=== PATIENT | female | born 1960 | race Caucasian/White ===

== ENCOUNTER 2021-03-25 09:28 | Emergency (ER) | payer OTHER, SELFPAY ==
[2021-03-25 09:28] VITALS: BP 141/100; PULSE 108; RESP 17; TEMP 36.6; O2SAT 100; BMI 23.8
--- NOTE | 2021-03-25 09:59 | EDS_ITS ---
HPI HPI - GI History of Present Illness Chief Complaint: Abd Pain Informant: patient and spouse/S.O. Abdominal Pain/Flank Pain Onset: Days (3-4) Context: Gradual Onset Timing: Continuous and Waxes and wanes Quality: Aching Location: - (Across periumbilical region worse on the right and into the flank/back) Current Severity: Moderate Maximum Severity: Moderate Worsened by: Nothing Relieved by: Nothing (Tried hydrocodone) Nausea/Vomiting/Emesis GI Symptom: Negative for Nausea and Vomiting Diarrhea/Melena/Hematochezia GI Symptom: Positive for - (Not having bowel movements in several weeks except for small one after enema) Associated Symptoms Associated Symptoms: Negative for Dysuria, Frequency, Hematuria and Urgency Narrative Narrative: Patient presented with abdominal discomfort, saying this episode has been there for several days but with further discussion she has been having these issues for several weeks. They state that she started having headaches with retro-orbital discomfort and fevers that were subjective. She saw someone and was placed on antibiotics and states everything went away. She then proceeded to have aches and pains all over her body involving arms, legs, back mostly. She has developed abdominal discomfort and felt that she might be constipated, did an enema, had a small bowel movement and then went to the [place] emergency room where she was diagnosed with hyponatremia at 116 and hypokalemia at 2.2 and was admitted to the hospital after a CT scan of her abdomen/pelvis that showed liquid stool in the colon and no other acute abno rmalities. Now she is getting worse, mostly abdominal discomfort and malaise without fevers, headache, vomiting, or diarrhea, she has not had a bowel movement since the enema she did before hospitalization, and they present here with some records from [facility] saying maybe you guys can figure this out since they could not. [facility] Medical History (Updated 03/25/21 @ 13:[address] Zaki Joseph MD) Hypothyroidism Hypothyroidism no medical history Home Medications Nature Thyroid 03/25/21 [History Last Taken Unknown] dicyclomine 20 mg PO Q6H PRN #16 capsule 03/25/21 [Rx Last Taken Unknown] hydrocodone-acetaminophen 1 tab PO Q4H PRN 03/25/21 [History Last Taken Unknown] sulfamethoxazole-trimethoprim 1 tab PO BID #6 tablet 03/25/21 [Rx Last Taken Unknown] Allergy/AdvReac Type Severity Reaction Status Date / Time azithromycin AdvReac Nausea/Vom/ Verified 03/25/21 09:31 Diarrhea Social History (Updated 03/25/21 @ 10:[address] Zaki Joseph MD) other: [facility] Smoking Status: Never smoker ROS ROS ED Constitutional Constitutional ED: Reports body ache(s) and malaise; Denies chills or fever(s) Eyes Eyes: Denies change in vision or diplopia ENT ENT ED: Denies rhinorrhea or sore throat Cardiovascular Cardiovascular: Denies chest pain or palpitations Respiratory/Chest Respiratory/Chest: Denies cough or dyspnea Gastrointestinal Gastrointestinal: Reports as per HPI, abdominal pain and constipation; Denies diarrhea, melena, nausea or vomiting Genitourinary Genitourinary ED: Denies dysuria or hematuria Musculoskeletal Musculoskeletal: Reports back pain; Denies neck pain Integumentary Denies abscess or rash Neurologic Neurologic: Denies headache(s), paresthesias or weakness Psychiatric Psychiatric: Denies anxiety or suicidal thoughts EXAM Physical Exam Const Vital Signs: 03/25/21 09:28 03/25/21 12:10 Temperature 97.9 F Temperature Source Temporal Pulse Rate 108 H 96 Respiratory Rate 17 16 Blood Pressure 141/100 H 152/100 H Blood Pressure Mean 113 117 Pulse Ox 100 Oxygen Delivery Method Room Air Positive well nourished and well developed General Appearance ED: well developed and NAD HEENT Reports moist mucous membranes normocephalic and atraumatic Eyes PERRL and EOMs intact bilaterally Neck full ROM and supple Resp normal respiratory effort and clear to auscultation bilaterally Cardio regular rate, regular rhythm and no murmurs GI GI Narrative: Soft distended abdomen. There are several areas of point tenderness, just right/inferior of the umbilicus, and left lateral mid abdomen. There is some mild involuntary guarding at these areas. She is mildly tender across the upper abdomen, and the rest of the abdomen is benign. Auscultation: normoactive bowel sounds Palpation: soft; Negative for rebound tenderness present Back/Spine no CVA tenderness, thoracic and lumbar spine normal to inspection, no thoracic nor lumbar tenderness and thoraco-lumbar ROM normal General Back: other FROM Extremity normal to inspection General Extremety ED: Negative for edema, pulses abnormal or tenderness General Extremity: Negative for edema or pulses abnormal Neuro oriented x3, CN's II-XII intact bilaterally and no sensory deficits noted Sensorium / Orientation: awake and alert Motor Exam: strength 5/5 throughout Skin no rashes or lesions noted and no wounds MDM MDM MDM Narrative Medical decision making narrative: I reviewed the records from the outside emergency department/inpatient records, it shows that 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 The spouse is asking how this is involved and what the significance of that is; it is not clear if this is related and if so, how. Patient had a headache and fever 3 or 4 weeks ago, but has not had either symptoms since then she is not confused, and she is not examining like meningitis nor encephalopathy and for these reasons I do not think she needs CSF emergently sampled. I repeated some of the work-up, especially since she had electrolyte disturbances that were quite severe, and performed a repeat CT abdomen pelvis with IV contrast. The results were limited however due to a significant amount of barium in the right hemicolon which may be causing her symptoms. When asked about this, she had a swallow study done while she was in [place] that I did not know about before this, and she drank barium for it. This was about five or 6 days ago. Without any significant leukocytosis I do not think she needs any other acute emergent studies right now. I think it would be reasonable to do a treatment of magnesium citrate followed by plenty of water in order to try to flush this through and produce a good bowel movement. My suspicion is that her pain and distention will improve or resolve after that, and then she can follow-up for reevaluation. I do not think she needs to be admitted to the hospital right now with a sodium of 126 and a potassium of 3.1 that are basically asymptomatic. Her urine shows some signs of infection although she has no urinary symptoms so I will treat her with a 3-day course of antibiotics for that and culture it, and prescribe her some dicyclomine, which they are requesting for the intermittent pains. For this reason, I will not be prescribing her potassium at this time. Lab Data Attestation: I reviewed the patient's lab results. Labs: Laboratory Results - last 24 hr 03/25/21 03/25/21 03/25/21 10:20 10:20 10:22 WBC 7.5 RBC 4.48 Hgb 13.2 Hct 40.1 MCV 89.5 MCH 29.5 MCHC 32.9 RDW Std Deviation 45.8 H RDW Coeff of Viktoriya 13.9 Plt Count 368 MPV 9.8 Immature Gran % (Auto) 0.300 Neut % (Auto) 68.7 Lymph % (Auto) 21.4 [place] % (Auto) 8.3 Eos % (Auto) 0.9 Baso % (Auto) 0.4 Absolute Neuts (auto) 5.2 Absolute Lymphs (auto) 1.60 Nucleated RBC % 0 Sodium 126 L Potassium 3.1 L Chloride 87 L Carbon Dioxide 31.0 Anion Gap 8 BUN 12 Creatinine 0.75 Estim Creat Clear Calc 63.88 Est GFR (MDRD) Af Amer 102 Est GFR (MDRD) Non-Af 84 BUN/Creatinine Ratio 16.0 Glucose 102 Calcium 9.7 Total Bilirubin 0.60 AST 15 ALT 26 Alkaline Phosphatase 87 Troponin I High Sens 5.6 Total Protein 7.7 Albumin 3.8 Globulin 3.9 Albumin/Globulin Ratio 1.0 Lipase 350 Urine Color Yellow Urine Clarity Sl. Cloudy Urine pH 5.0 Ur Specific [place] 1.020 Urine Protein 15 H Urine Glucose (UA) Normal Urine Ketones 5 H Urine Occult Blood 50 H Urine Nitrite Positive H Urine Bilirubin Negative Urine Urobilinogen Normal Ur Leukocyte Esterase 100 H Urine RBC 0-5 SEEN Urine WBC 10-25 SEEN Ur Squamous Epith Cells 0-5 SEEN Urine Bacteria 2+ Urine Mucus 0 SEEN Radiography Diagnostic Testing: Radiology Impression Abdomen/Pelvis CT 03/25/21 11:35 IMPRESSION: Fatty infiltration of the liver. Limited evaluation of the abdomen and pelvis due to large amount of residual contrast in the right hemicolon causing beam hardening artifacts. Electronically Signed: Travis Ramon MD at 11:54 EDT , Service support , Discharge Plan Triage Chief Complaint: Abd Pain ED Provider: Zaki Joseph Dx/Rx/DC Orders Clinical Impression: Right sided abdominal pain, Constipation, Urinary tract infection Instructions: ED Constipation (Adult), ED CYSTITIS Female Adult Prescriptions: New dicyclomine 10 MG capsule 20 mg PO Q6H PRN (Reason: abdominal pain) Qty: 16 RF: 0 sulfamethoxazole-trimethoprim [sulfamethoxazole-trimethoprim] 1 TABLET tablet 1 tab PO BID Qty: 6 RF: 0 No Action hydrocodone-acetaminophen 5-325 mg Tablet 1 tab PO Q4H PRN (Reason: pain) RF: 0 Nature Thyroid RF: 0 Primary Care Provider: Care Physician,No Primary Referrals: Care Physician,No Primary [Primary Care Provider] - Doctor,Your [STAFF PHYSICIAN] - 3-5 Days if not improving (After magnesium citrate hopefully produces a bowel movement) Activity Restrictions/Additional Instructions: Drink half bottle of magnesium citrate (150 mL) followed by plenty of fluids/water. If it does not produce a good bowel movement in 24 hours you may repeat with the other half of the bottle. Disposition Disposition: Home, Self Care
[2021-03-25] MEDS: 0.9% Normal Saline 1,000 ML 125 ML IV (10:23)
[2021-03-25 10:35] LABS: Mucous, Urine 0 SEEN /hpf (<or=2+)
[2021-03-25 10:38] LABS: Absolute Neutrophil Count 5.2 X10^3/uL (2.0-7.7); Basophil# 0.03 X10^3/uL; Basophil% 0.4 % (0-1); Eosinophil# 0.07 X10^3/uL; Eosinophils% 0.9 % (0-5); Hematocrit 40.1 % (37-47); Hemoglobin 13.2 g/dL (12.0-15.0); Lymphocyte % 21.4 % (19-41); Mean Corp Hgb Conc 32.9 g/dL (32-36); Mean Corpuscular Hgb 29.5 pg (27.0-32.0); Mean Corpuscular Volume 89.5 fL (81-99); Mean Platelet Vol. 9.8 fl (6.2-12.0); Monocyte# 0.62 X10^3/uL; Monocyte% 8.3 % (0-10); NRBC Flagged by Analyzer 0 % (0-5); Neutrophil # 5.15 X10^3/uL (2.7-7.7); Neutrophil % 68.7 % (47-70); Platelet Count 368 K/mm3 (150-450); RBC Distribution Width CV 13.9 % (11.6-14.6); RBC Distribution Width SD 45.8 fl (35.1-43.9); Red Blood Count 4.48 M/mm3 (4.2-5.4); White Blood Count 7.5 K/mm3 (4.4-11.0)
[2021-03-25 10:40] LABS: Color, Urine Yellow (Yellow); Glucose, Dipstick Normal (Normal); Ketone-Dipstick 5 mg/dl (Negative); Leukocyte Esterase-Dipstick 100 /ul (Negative); Nitrite-Dipstick Positive (Negative); Occult Blood-Urine 50 /ul (Negative); Protein-Dipstick 15 mg/dl (Negative); Urine Bilirubin Dipstick Negative (Negative); Urine Clarity Sl. Cloudy (Clear); Urine Urobilinogen Normal (Normal)
[2021-03-25 10:48] LABS: Bacteria 2+ /hpf (None Seen); Red Blood Cells-Urine 0-5 SEEN /hpf (0-5); Squamous Epithelial Cells - UA 0-5 SEEN /hpf (5-10); White Blood Cells 10-25 SEEN /hpf (0-5)
[2021-03-25 10:56] LABS: AST(SGOT) 15 U/L (15-37); Alanine Aminotransfer ALT/SGPT 26 U/L (13-56); Albumin, Serum 3.8 g/dL (3.2-5.0); Alkaline Phosphatase 87 U/L (45-117); Anion Gap 8 (5-15); BUN 12 mg/dL (7-18); Calcium,Total 9.7 mg/dL (8.5-10.1); Chloride 87 mmol/L (98-107); Creatinine, Serum 0.75 mg/dL (0.55-1.02); EST Glomerular Filtration Rate 84 mL/min (>60); Est Glom Filt Rate - Afr Amer 102 mL/min (>60); Estimated Creatinine Clearance 63.88 ml/min; Globulin 3.9 g/dL (2.2-4.2); Glucose 102 mg/dL (74-106); Lipase 350 U/L (73-393); Potassium 3.1 mmol/L (3.5-5.1); Protein, Total 7.7 g/dL (6.4-8.2); Sodium Level 126 mmol/L (136-145); Troponin-I HS 5.6 pg/mL (3.0-53.7)
--- NOTE | 2021-03-25 11:35 | CT_ITS ---
STUDY: CT ABDOMEN AND PELVIS WITH CONTRAST REASON FOR EXAM: Female, 60 years old. Diffuse abd pain, abdominal distension RADIATION DOSAGE (If Supplied By Facility): CTDIvol = ( 14.28 ) mGy, DLP = ( 811.73 ) mGycm TECHNIQUE: Transaxial images were obtained from the dome of the diaphragm to the symphysis pubis without oral contrast. IV 100mL Isovue-300 was administered. Sagittal and coronal images were reconstructed. Individualized dose optimization techniques were used for this CT. COMPARISON: None. FINDINGS: The visualized lung bases are unremarkable. The visualized portions of the heart are within normal limits. There is decreased attenuation of the liver consistent with steatosis. Normal gallbladder and extrahepatic biliary system. Normal spleen. Normal pancreas. Normal bilateral adrenal glands. Normal right kidney. Normal left kidney. Normal visualized stomach. Normal small intestine. Large amount of residual barium is seen within the right hemicolon limiting the examination of the abdomen and pelvis due to beam hardening artifacts. The appendix is visualized and appears normal. Normal abdominal aorta. Normal inferior vena cava. Normal retroperitoneum. Normal urinary bladder. Normal abdominal wall. Normal osseous structures. CT/Abdomen/Pelvis W IV Cont ONLY IMPRESSION: Fatty infiltration of the liver. Limited evaluation of the abdomen and pelvis due to large amount of residual contrast in the right hemicolon causing beam hardening artifacts. Electronically Signed: Travis Ramon MD at 11:54 EDT , Service support ,
[2021-03-25 12:10] VITALS: BP 152/100; PULSE 96; RESP 16
[2021-03-25 13:36] VITALS: BP 148/98; PULSE 107; RESP 16
== END 2021-03-25 13:36 | disposition home or self-care (01) ==
PROVIDERS: Emergency Provider Emergency Medicine
DX: R10.30 Lower abdominal pain, unspecified (principal); K59.00 Constipation, unspecified; N39.0 Urinary tract infection, site not specified; Z79.899 Other long term (current) drug therapy
CPT/HCPCS: 74177; 80053; 81001; 83690; 84484; 85025; 87086; 87088; 87186; 87426; 96360; 96361; 99283; J7030; Q9967; A4216

== ENCOUNTER 2021-04-01 07:15 | Inpatient (IN) | payer OTHER, SELFPAY ==
[2021-04-01 07:16] VITALS: BP 128/96; PULSE 105; RESP 18; TEMP 36.2; O2SAT 97; BMI 22.4
--- NOTE | 2021-04-01 07:37 | EKG12_ITS ---
Test Reason : ABDOMINAL PAIN Blood Pressure : / mmHG Vent. Rate : 090 BPM Atrial Rate : 090 BPM P-R Int : 184 ms QRS Dur : 082 ms QT Int : 364 ms P-R-T Axes : 064 -10 043 degrees QTc Int : 445 ms Normal sinus rhythm Low voltage QRS (Limb Leads) Confirmed by SKYLER CHAPIN, TRACY ([id number]), staff editor TASHA CABAN ([id number]) on 04/03/2021 10:01:14 AM Referred By: Confirmed By:TRACY HOLLAND MD
--- NOTE | 2021-04-01 07:37 | CT_ITS ---
STUDY: CT ABDOMEN AND PELVIS WITH CONTRAST REASON FOR EXAM: Female, 60 years old. RLQ pain -- IV PO Contrast RADIATION DOSAGE (If Supplied By Facility): CTDIvol = ( 15.38 ) mGy, DLP = ( 358.78 ) mGycm TECHNIQUE: Transaxial images were obtained from the dome of the diaphragm to the symphysis pubis with oral contrast. Oral and amp; IV Gastrografin and amp; 100mL Isovue-370 was administered. Sagittal and coronal images were reconstructed. Individualized dose optimization techniques were used for this CT. COMPARISON: Comparison is made with prior study 03/25/2021. FINDINGS: The visualized lung bases are unremarkable. The visualized portions of the heart are within normal limits. Normal liver. Normal gallbladder and extrahepatic biliary system. Normal spleen. Normal pancreas. Normal bilateral adrenal glands. Normal right kidney. Normal left kidney. Normal visualized stomach. Normal small intestine. Normal colon. The appendix is visualized and appears normal. Small lymph nodes are seen in the mesenteric fat in the right lower quadrant suggestive of mesenteric adenitis. Normal abdominal aorta. Normal inferior vena cava. Normal retroperitoneum. Distended urinary bladder. Normal abdominal wall. Levoscoliosis. CT/Abdomen/Pelvis WITH Contrast IMPRESSION: Findings suggestive of a mesenteric adenitis. Distended urinary bladder. Electronically Signed: Travis Ramon MD at 9:44 EDT , Service support ,
--- NOTE | 2021-04-01 07:38 | EX.ED.DYSGE1 ---
HPI History of Present Illness Chief Complaint: Abd Pain Narrative Narrative: 60-year-old female presenting with abdominal pain. Family states this started approximately 8 weeks ago. She has had right-sided abdominal pain. She was admitted to [facility] for similar symptoms. She was seen in the ED 1 week ago for similar complaints. Family states pain is now more localized in her right lower quadrant. She did have a bowel movement yesterday. She denies vomiting. Complains of generalized weakness and fatigue. She has had intermittent fevers. She tested negative for Covid 1 week ago. Prior similar symptoms: Yes Recent Illness/Hospitalization: Yes [facility] Medical History (Updated 04/01/21 @ 11:[address] Venita Mendoza MD) Hypothyroidism Hypothyroidism Home Medications Nature Thyroid 03/25/21 [History Last Taken Unknown] dicyclomine 20 mg PO Q6H PRN #16 capsule 03/25/21 [Rx Last Taken Unknown] hydrocodone-acetaminophen 1 tab PO Q4H PRN 03/25/21 [History Last Taken Unknown] sulfamethoxazole-trimethoprim 1 tab PO BID #6 tablet 03/25/21 [Rx Last Taken Unknown] Allergy/AdvReac Type Severity Reaction Status Date / Time azithromycin AdvReac Nausea/Vom/ Verified 04/01/21 07:16 Diarrhea Social History (Updated 03/25/21 @ 10:[address] Zaki Joseph MD) other: [facility] Smoking Status: Never smoker ROS ROS ED Constitutional Constitutional ED: Reports fever(s) Eyes Eyes: Denies change in vision ENT ENT ED: Denies rhinorrhea or sore throat Cardiovascular Cardiovascular: Denies chest pain or palpitations Respiratory/Chest Respiratory/Chest: Denies cough or dyspnea Gastrointestinal Gastrointestinal: Reports abdominal pain and nausea; Denies diarrhea or vomiting Genitourinary Genitourinary ED: Denies dysuria Musculoskeletal Musculoskeletal: Denies myalgias Integumentary Denies rash Neurologic Neurologic: Denies headache(s) Psychiatric Psychiatric: Denies suicidal thoughts EXAM Physical Exam Const Vital Signs: 04/01/21 07:16 04/01/21 11:18 Temperature 97.1 F L Temperature Source Temporal Pulse Rate 105 H 82 Respiratory Rate 18 16 Blood Pressure 128/96 H 135/86 H Blood Pressure Mean 106 102 Pulse Ox 97 97 Oxygen Delivery Method Room Air Room Air Positive well nourished and well developed General Appearance ED: well developed HEENT Reports normocephalic and head/scalp atraumatic Eyes PERRL and EOMs intact bilaterally Neck supple General: Negative for tenderness Chest Wall inspection of chest normal Resp normal respiratory effort and clear to auscultation bilaterally Cardio regular rate and regular rhythm GI non-distended Palpation: soft and tender RLQ and RUQ; Negative for guarding or rebound tenderness present no CVA tenderness Back/Spine General Back: CVA tenderness right Extremity normal to inspection Neuro oriented x3 Sensorium / Orientation: alert Psych mental status grossly normal Skin no rashes or lesions noted MDM MDM MDM Narrative Medical decision making narrative: Patient was given IV fluids, morphine, Zofran. Chemistries show sodium 124, potassium 2.8. Lipase 1253. EKG is sinus rhythm rate of 90 with no acute ischemic changes. She was given potassium oral replacement. Gallbladder ultrasound shows mild right hydronephrosis. CT abdomen pelvis shows findings suggestive of mesenteric adenitis. Due to patient's elevated lipase, continued pain, discussed with hospitalist for admission. Lab Data Attestation: I reviewed the patient's lab results. Labs: Laboratory Results - last 24 hr 04/01/21 04/01/21 04/01/21 08:00 08:00 09:52 WBC 7.4 RBC 4.80 Hgb 14.3 Hct 42.1 MCV 87.7 MCH 29.8 MCHC 34.0 RDW Std Deviation 42.5 RDW Coeff of Viktoriya 13.3 Plt Count 249 MPV 10.1 Immature Gran % (Auto) 0.300 Neut % (Auto) 64.5 Lymph % (Auto) 26.1 [place] % (Auto) 8.0 Eos % (Auto) 0.7 Baso % (Auto) 0.4 Absolute Neuts (auto) 4.8 Absolute Lymphs (auto) 1.93 Nucleated RBC % 0 Platelet Estimate ADEQUATE Plt Morphology Comment CLUMPED Sodium 124 L Potassium 2.8 L Chloride 91 L Carbon Dioxide 26.0 Anion Gap 7 BUN 12 Creatinine 0.70 Estim Creat Clear Calc 68.44 Est GFR (MDRD) Af Amer 110 Est GFR (MDRD) Non-Af 91 BUN/Creatinine Ratio 17.2 Glucose 102 Calcium 9.5 Total Bilirubin 0.60 AST 17 ALT 25 Alkaline Phosphatase 84 Total Protein 7.6 Albumin 3.2 Globulin 4.4 H Albumin/Globulin Ratio 0.7 L Lipase 1253 H Urine Color Straw Urine Clarity Clear Urine pH 7.0 Ur Specific [place] 1.005 Urine Protein Negative Urine Glucose (UA) Normal Urine Ketones 5 H Urine Occult Blood 10 H Urine Nitrite Negative Urine Bilirubin Negative Urine Urobilinogen Normal Ur Leukocyte Esterase Negative Urine RBC 0 SEEN Urine WBC 0 SEEN Ur Squamous Epith Cells 0-5 SEEN Urine Bacteria 0 SEEN Urine Mucus 0 SEEN Radiography Diagnostic Testing: Radiology Impression Abdomen/Pelvis CT 04/01/21 07:37 IMPRESSION: Findings suggestive of a mesenteric adenitis. Distended urinary bladder. Electronically Signed: Travis Ramon MD at 9:44 EDT , Service support , Gallbladder Ultrasound 04/01/21 08:40 IMPRESSION: Mild degree of right hydronephrosis. Electronically Signed: Travis Ramon MD at 10:46 EDT , Service support , EKG Initial EKG: Attestation: I personally reviewed and interpreted this EKG as follows: Interpretation: Sinus Rhythm and No Acute Injury Pattern Discharge Plan Triage Chief Complaint: Abd Pain ED Provider: Venita Mendoza Dx/Rx/DC Orders Clinical Impression: Acute pancreatitis, Acute hyponatremia, Acute hypokalemia Prescriptions: No Action hydrocodone-acetaminophen 5-325 mg Tablet 1 tab PO Q4H PRN (Reason: pain) RF: 0 Nature Thyroid RF: 0 dicyclomine 10 MG capsule 20 mg PO Q6H PRN (Reason: abdominal pain) Qty: 16 RF: 0 sulfamethoxazole-trimethoprim [sulfamethoxazole-trimethoprim] 1 TABLET tablet 1 tab PO BID Qty: 6 RF: 0 Primary Care Provider: Care Physician,No Primary Referrals: Care Physician,No Primary [Primary Care Provider] - Disposition Disposition: [facility]
--- NOTE | 2021-04-01 07:46 | NURSING ---
NO OLD EKGS
[2021-04-01 08:08] LABS: Absolute Lymphocyte Count 1.93 X10^3/uL (0.83-4.51); Absolute Neutrophil Count 4.8 X10^3/uL (2.0-7.7); Basophil# 0.03 X10^3/uL; Basophil% 0.4 % (0-1); Eosinophil# 0.05 X10^3/uL; Eosinophils% 0.7 % (0-5); Hematocrit 42.1 % (37-47); Hemoglobin 14.3 g/dL (12.0-15.0); Lymphocyte # 1.93 X10^3/ul (0.83-4.51); Lymphocyte % 26.1 % (19-41); Mean Corpuscular Hgb 29.8 pg (27.0-32.0); Mean Corpuscular Volume 87.7 fL (81-99); Mean Platelet Vol. 10.1 fl (6.2-12.0); Monocyte# 0.59 X10^3/uL; NRBC Flagged by Analyzer 0 % (0-5); Neutrophil # 4.78 X10^3/uL (2.7-7.7); Neutrophil % 64.5 % (47-70); POSITIVE COUNT YES; Platelet Count 249 K/mm3 (150-450); RBC Distribution Width CV 13.3 % (11.6-14.6); RBC Distribution Width SD 42.5 fl (35.1-43.9); White Blood Count 7.4 K/mm3 (4.4-11.0)
[2021-04-01 08:11] LABS: Differential Indicated SCAN CRITERIA MET
[2021-04-01 08:22] LABS: ALB/GLOB Ratio 0.7 RATIO (0.9-2.4); AST(SGOT) 17 U/L (15-37); Alanine Aminotransfer ALT/SGPT 25 U/L (13-56); Albumin, Serum 3.2 g/dL (3.2-5.0); Alkaline Phosphatase 84 U/L (45-117); Anion Gap 7 (5-15); BUN 12 mg/dL (7-18); BUN/Creat Ratio 17.2 RATIO (10-20); Calcium,Total 9.5 mg/dL (8.5-10.1); Chloride 91 mmol/L (98-107); EST Glomerular Filtration Rate 91 mL/min (>60); Est Glom Filt Rate - Afr Amer 110 mL/min (>60); Estimated Creatinine Clearance 68.44 ml/min; Globulin 4.4 g/dL (2.2-4.2); Glucose 102 mg/dL (74-106); Lipase 1253 U/L (73-393); Potassium 2.8 mmol/L (3.5-5.1); Protein, Total 7.6 g/dL (6.4-8.2); Sodium Level 124 mmol/L (136-145)
[2021-04-01 08:32] LABS: Platelet Estimate ADEQUATE (ADEQ); Platelet Morphology CLUMPED
--- NOTE | 2021-04-01 08:40 | US_ITS ---
STUDY: ABDOMINAL ULTRASOUND - RIGHT UPPER QUADRANT REASON FOR VISIT: Female, 60 years old RUQ pain TECHNIQUE: Ultrasound evaluation of the right upper quadrant was performed with real-time and static schreiber-scale imaging. TECHNICAL QUALITY: Limited. Examination limited by bowel gas. COMPARISON: Comparison is made with prior CT scan the abdomen and pelvis done earlier in the day. FINDINGS: Liver: The liver measures 13.2 cm. There is normal echogenicity of the liver. The bile ducts are within normal limits. There is hepatic color flow. The direction of portal flow is hepatopetal. There is no demonstrated mass lesion. Gallbladder: Normal distended gallbladder. The gallbladder wall measures 1.4 mm. There is a negative sonographic Lawrence''s sign. There is no pericholecystic fluid. There are no gallstones. Common Bile Duct (C.B.D.): The common bile duct measures 7.9 mm. Pancreas: Normal size of the head, body and tail of the pancreas. There is normal echogenicity of the pancreas. There is no demonstrated pancreatic mass or cyst. Right Kidney: Normal size of the right kidney. The right kidney measures 10 cm x 4.4 cm x 4 cm. Normal renal cortex. The right cortex measures 1.3 cm. There is no demonstrated renal mass or cyst. There is mild hydronephrosis of the right kidney. US/Gallbladder IMPRESSION: Mild degree of right hydronephrosis. Electronically Signed: Travis Ramon MD at 10:46 EDT , Service support ,
[2021-04-01] MEDS: Morphine 4 MG/ML Syringe IV (08:43)
[2021-04-01] MEDS: Ondansetron 4 MG/2 ML Vial IV (08:43)
[2021-04-01] MEDS: 0.9% Normal Saline 1,000 ML 1000 ML IV (08:46)
[2021-04-01 09:58] LABS: Bacteria 0 SEEN /hpf (None Seen); Mucous, Urine 0 SEEN /hpf (<or=2+); Red Blood Cells-Urine 0 SEEN /hpf (0-5); White Blood Cells 0 SEEN /hpf (0-5)
[2021-04-01 10:02] LABS: Color, Urine Straw (Yellow); Glucose, Dipstick Normal (Normal); Ketone-Dipstick 5 mg/dl (Negative); Leukocyte Esterase-Dipstick Negative /ul (Negative); Nitrite-Dipstick Negative (Negative); Occult Blood-Urine 10 /ul (Negative); Protein-Dipstick Negative (Negative); Specific Gravity, Urine 1.005 (1.002-1.030); Urine Bilirubin Dipstick Negative (Negative); Urine Clarity Clear (Clear); Urine Urobilinogen Normal (Normal)
[2021-04-01 10:09] LABS: Squamous Epithelial Cells - UA 0-5 SEEN /hpf (5-10)
[2021-04-01 11:18] VITALS: BP 135/86; PULSE 82; RESP 16; O2SAT 97
--- NOTE | 2021-04-01 11:49 | NURSING ---
DR TIMOTHY BASS
--- NOTE | 2021-04-01 12:48 | NURSING ---
MED SURG JOPPERI PANCREATITIS, HYPONATREMIA
[2021-04-01] MEDS: Potassium Chloride Oral Soln 20 MEQ/15 ML UDC 40 MEQ PO (13:20)
[2021-04-01 13:24] VITALS: BP 129/78; PULSE 98; RESP 16; TEMP 37.1; O2SAT 99
[2021-04-01 13:52] VITALS: BP 127/84; PULSE 87; RESP 16; TEMP 36.3; O2SAT 97
[2021-04-01 13:53] VITALS: BMI 22.6
--- NOTE | 2021-04-01 15:18 | MRI_ITS ---
STUDY: MR MRCP WITHOUT CONTRAST REASON FOR EXAM: Female, 60 years old. pancreatitis,abd pain TECHNIQUE: Standard MRCP technique was utilized. 3-D reconstructions were performed. COMPARISON: CT and ultrasound earlier today FINDINGS: Gall Bladder: Normal with no distention or demonstrated fixed intraluminal filling defect. Cystic duct: Normal with no demonstrated fixed filling defect. Intrahepatic ducts: Normal visualized intrahepatic ducts with no demonstrated fixed filling defect, dilation or stricture. Common hepatic duct: Normal with no demonstrated fixed filling defect, dilation or stricture. Common bile duct: Normal with no demonstrated fixed filling defect, dilation or stricture. Pancreatic duct: Normal with no demonstrated fixed filling defect, dilation or stricture. MRI/MRCP Abdomen without Contrast IMPRESSION: Normal MR Cholangiopancreatography (MRCP). Electronically Signed: Marques Cuevas MD at 18:48 EDT Tel , Service support ,
--- NOTE | 2021-04-01 15:20 | PCM.HP.STD ---
HPI - General General Date of Admission: 04/01/21 Date of Service: 04/01/21 Chief Complaint: abdominal pain HPI Narrative STEF ROCK, is a 60 F who presents diffuse abdominal pain that has been progressive getting worse. Roughly 8 weeks ago, patient was treated with antibiotics and has been having abdominal pain ever since then. Is not eating much but eating seems to make it worse. No nausea, vomiting or diarrhea. Patient had a CAT scan that showed mesenteric adenitis and did have a lipase 1253. PFSH Medical History (Updated 04/01/21 @ 15:[address] Chris Smith DO) Hypokalemia Hyponatremia Hypothyroidism Hypothyroidism Home Medications dicyclomine 20 mg PO Q6H PRN #16 capsule 03/25/21 [Rx Last Taken 03/29/21] hydrocodone-acetaminophen 1 tab PO Q4H PRN 03/25/21 [History Last Taken 03/29/21] potassium chloride 20 meq PO DAILY 04/01/21 [History Last Taken 03/31/21] sodium chloride 1 g PO BID 04/01/21 [History Last Taken 03/31/21 18:00] thyroid (pork) [[place] Thyroid] 90 mg PO DAILY 04/01/21 [History Last Taken 04/01/21 06:00] Allergy/AdvReac Type Severity Reaction Status Date / Time azithromycin AdvReac neck spasms Verified 04/01/21 14:02 Social History other: [facility] Smoking Status: Never smoker ROS ROS Narrative All review of systems were negative except as mentioned above in the history of present illness and the other review of systems. Vital Signs Vital Signs Vital Signs: 04/01/21 07:16 04/01/21 11:18 04/01/21 13:24 Temperature 36.2 C L 37.1 C Temperature Source Temporal Temporal Pulse Rate 105 H 82 98 Respiratory Rate 18 16 16 Blood Pressure 128/96 H 135/86 H 129/78 H Blood Pressure Mean 106 102 95 Blood Pressure Source Blood Pressure Position Blood Pressure Location Pulse Ox 97 97 99 Oxygen Delivery Method Room Air Room Air Room Air 04/01/21 13:52 Temperature 36.3 C L Temperature Source Temporal Pulse Rate 87 Respiratory Rate 16 Blood Pressure 127/84 H Blood Pressure Mean 98 Blood Pressure Source Monitor Blood Pressure Position Semi-Fowlers Blood Pressure Location Left Arm Pulse Ox 97 Oxygen Delivery Method Room Air Weight Weight: 56.1 kg Body Mass Index (BMI) 22.6 Physical Exam Const alert and no apparent distress Constitutional Narrative: Hard of hearing General Appearance: cooperative HEENT normocephalic Eyes PERRL Neck no lymphadenopathy Resp normal respiratory effort, no retractions, no use of accessory muscles and clear to auscultation bilaterally Cardio regular rate, regular rhythm, S1 normal heart sound and S2 normal heart sound GI normal to inspection, nondistended, normoactive bowel sounds, soft to palpation and non-distended GI Narrative: Mild tenderness throughout. No guarding Extremity normal to inspection Skin no rashes or lesions noted Neuro Sensorium / Orientation: awake and alert Psych affect normal Results Lab / Micro Data Attestation: I reviewed the patient's lab results. Result Diagrams: 04/01/21 08:00 04/01/21 08:00 Labs: Laboratory Results - last 24 hr 04/01/21 08:00: WBC 7.4, RBC 4.80, Hgb 14.3, Hct 42.1, MCV 87.7, MCH 29.8, MCHC 34.0, RDW Std Deviation 42.5, RDW Coeff of Viktoriya 13.3, Plt Count 249, MPV 10.1, Immature Gran % (Auto) 0.300, Neut % (Auto) 64.5, Lymph % (Auto) 26.1, [place] % (Auto) 8.0, Eos % (Auto) 0.7, Baso % (Auto) 0.4, Absolute Neuts (auto) 4.8, Absolute Lymphs (auto) 1.93, Nucleated RBC % 0, Platelet Estimate ADEQUATE, Plt Morphology Comment CLUMPED 04/01/21 08:00: Sodium 124 L, Potassium 2.8 L, Chloride 91 L, Carbon Dioxide 26.0, Anion Gap 7, BUN 12, Creatinine 0.70, Estim Creat Clear Calc 68.44, Est GFR (MDRD) Af Amer 110, Est GFR (MDRD) Non-Af 91, BUN/Creatinine Ratio 17.2, Glucose 102, Calcium 9.5, Total Bilirubin 0.60, AST 17, ALT 25, Alkaline Phosphatase 84, Total Protein 7.6, Albumin 3.2, Globulin 4.4 H, Albumin/Globulin Ratio 0.7 L, Lipase 1253 H 04/01/21 09:52: Urine Color Straw, Urine Clarity Clear, Urine pH 7.0, Ur Specific [place] 1.005, Urine Protein Negative, Urine Glucose (UA) Normal, Urine Ketones 5 H, Urine Occult Blood 10 H, Urine Nitrite Negative, Urine Bilirubin Negative, Urine Urobilinogen Normal, Ur Leukocyte Esterase Negative, Urine RBC 0 SEEN, Urine WBC 0 SEEN, Ur Squamous Epith Cells 0-5 SEEN, Urine Bacteria 0 SEEN, Urine Mucus 0 SEEN Micro: Microbiology 04/01/21 10:48 Mucosa - Nose SARS-CoV-2 Antigen (Rapid) - Final Radiology Impression Abdomen/Pelvis CT 04/01/21 07:37 IMPRESSION: Findings suggestive of a mesenteric adenitis. Distended urinary bladder. Electronically Signed: Travis Ramon MD at 9:44 EDT , Service support , Gallbladder Ultrasound 04/01/21 08:40 IMPRESSION: Mild degree of right hydronephrosis. Electronically Signed: Travis Ramon MD at 10:46 EDT , Service support , Assessment & Plan Assessment/Plan (1) Pancreatitis: QUALIFIERS: Chronicity: acute Pancreatitis type: unspecified pancreatitis type Acute pancreatitis complication: no infection or necrosis Qualified Code(s): K85.90 - Acute pancreatitis without necrosis or infection, unspecified (2) Mesenteric adenitis: (3) Hypokalemia: (4) Hyponatremia: PLAN: 1. Acute pancreatitis Lipase slightly elevated at 1253 Unclear etiology but patient denies alcohol use and ultrasound was negative for any choledocholithiasis. IV fluids, clear liquid diet and recheck lipase 2. Mesenteric adenitis Unclear etiology and significance We will check a lactic acid though doubt mesenteric ischemia would be an etiology Could be infectious which could also explain the pancreatitis Will likely require further follow-up as outpatient and/or colonoscopy 3. Hyponatremia Chronic Unclear etiology Evaluate for SIADH with urine sodium, urine osmolality and serum osmolality Additionally check TSH and as well as random cortisol 4. Hypokalemia Chronic Check magnesium Continue with replacement 5. Hypothyroidism On [place] Thyroid in which she has been on for years Check TSH 6. VTE prophylaxis: Low molecular rate heparin 7. History of COVID-19: Patient has COVID-19 earlier this year. Rapid antigen here was negative. No clinical suspicion for acute COVID-19 at this time. Charges/Coding Visit Charges Inpatient E&M: 57756 Init Hosp L3
[2021-04-01] MEDS: oxyCODONE 5 MG Tablet PO ×2 (15:34→23:56)
[2021-04-01] MEDS: Contrast Allergy Safety Check IV (15:37)
[2021-04-01 16:09] LABS: Urine Sodium 96 mmol/L (Not Establ.)
[2021-04-01] MEDS: 0.9% Saline Lock 10 ML Syringe IV (16:18)
[2021-04-01] MEDS: KCL 20MEQ in 0.9% NS 20 MEQ/1,000 ML IV.SOLN. 150 MEQ IV ×2 (16:18→23:55)
[2021-04-01 16:46] LABS: Osmolality, Urine 467 mOsm/KG
[2021-04-01 17:36] LABS: Osmolality, Serum 279 mOsm/KG (275-295)
[2021-04-01 17:48] LABS: Lactic Acid 0.8 mmol/L (0.4-1.9)
[2021-04-01 18:58] VITALS: BP 131/89; PULSE 93; RESP 16; TEMP 36.9; O2SAT 98
--- NOTE | 2021-04-01 19:59 | NURSING ---
Pandemic documentation Date: 04/01/21 Time:1899
[2021-04-01] MEDS: Sodium Chloride 1 GM Tablet PO (21:06)
[2021-04-01 21:12] VITALS: BP 127/82; PULSE 100; RESP 18; TEMP 37.3; O2SAT 99
[2021-04-02 03:06] VITALS: BP 122/85; PULSE 97; RESP 16; TEMP 36.3; O2SAT 97
[2021-04-02] MEDS: oxyCODONE 5 MG Tablet 10 MG PO (04:14)
[2021-04-02] MEDS: KCL 20MEQ in 0.9% NS 20 MEQ/1,000 ML IV.SOLN. 150 MEQ IV ×2 (06:14→12:48)
[2021-04-02 06:55] LABS: Anion Gap 6 (5-15); BUN 7 mg/dL (7-18); BUN/Creat Ratio 13.6 RATIO (10-20); Calcium,Total 8.3 mg/dL (8.5-10.1); Chloride 100 mmol/L (98-107); Creatinine, Serum 0.52 mg/dL (0.55-1.02); EST Glomerular Filtration Rate 129 mL/min (>60); Est Glom Filt Rate - Afr Amer 157 mL/min (>60); Estimated Creatinine Clearance 92.13 ml/min; Glucose 102 mg/dL (74-106); Lipase 688 U/L (73-393); Potassium 3.3 mmol/L (3.5-5.1); Sodium Level 133 mmol/L (136-145); Thyroid Stim Hormone (TSH) 2.43 uIU/mL (0.358-3.74)
[2021-04-02 08:21] VITALS: BP 115/75; PULSE 94; RESP 16; TEMP 36.9; O2SAT 97
[2021-04-02] MEDS: Potassium Chloride Oral Tablet 20 MEQ PO (08:26)
[2021-04-02 08:35] VITALS: PULSE 88
--- NOTE | 2021-04-02 09:28 | PN.HOSP_ITS ---
Subjective Subjective Still with abdominal pain but overall better. Has eaten something Objective Data Objective Data Vital Signs: Vital Signs Temp Pulse Resp BP Pulse Ox 36.9 C 94 16 115/75 97 04/02/21 08:21 04/02/21 08:21 04/02/21 08:21 04/02/21 08:21 04/02/21 08:21 Oxygen Delivery Method Room Air Weight: 56.1 kg Body Mass Index (BMI) 22.6 Intake & Output: Intake and Output for Last 24 Hours 03/31/21 04/01/21 04/02/21 23:59 23:59 23:59 Intake Total 2149 / 2149 947.5 / 947.5 Balance 2149 947.5 / 947.5 Medical Nutrition Assessment Dietitian: Malnutrition Criteria Met Start: 04/01/21 15:47 Freq: Status: Active Protocol: Document 04/01/21 15:47 SLA (Rec: 04/01/21 15:47 SLA [id number]) Nutrition Malnutrition Evidence of Malnutrition Exists Yes Malnutrition (severe): Acute Illness/Injury Evidenced By Suboptimal Energy Intake ( Severe),Weight Loss (Severe) Clinical Problem Acute Disease or Injury Related Malnutrition Etiology related to altered GI function and inadequate nutrition to meet estimated nutritional needs Signs/Symptoms as evidenced by 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 Problem Recommendation Dietitian Recommendations/Changes When medically able, rec diet as tolerated to Transitional w / goal of Regular diet Will provide 8 oz ensure clear w/ meals for increased nutrition if consumed Lab / Micro Data Result Diagrams: 04/01/21 08:00 04/02/21 05:50 Labs: Laboratory Results - last 24 hr 04/01/21 09:52: Urine Color Straw, Urine Clarity Clear, Urine pH 7.0, Ur Specific [place] 1.005, Urine Protein Negative, Urine Glucose (UA) Normal, Urine Ketones 5 H, Urine Occult Blood 10 H, Urine Nitrite Negative, Urine Bilirubin Negative, Urine Urobilinogen Normal, Ur Leukocyte Esterase Negative, Urine RBC 0 SEEN, Urine WBC 0 SEEN, Ur Squamous Epith Cells 0-5 SEEN, Urine Bacteria 0 SEEN, Urine Mucus 0 SEEN 04/01/21 15:55: Urine Osmolality 467, Ur Random Sodium 96 04/01/21 17:05: Serum Osmolality 279 04/01/21 17:05: Lactic Acid 0.8 04/02/21 05:50: Sodium 133 L, Potassium 3.3 L, Chloride 100, Carbon Dioxide 27.0, Anion Gap 6, BUN 7, Creatinine 0.52 L, Estim Creat Clear Calc 92.13, Est GFR (MDRD) Af Amer 157, Est GFR (MDRD) Non-Af 129, BUN/Creatinine Ratio 13.6, Glucose 102, Calcium 8.3 L, Magnesium 2.0, Lipase 688 H, TSH 2.43 04/02/21 05:50: Cortisol 13.70 Micro: Microbiology 04/01/21 10:48 Mucosa - Nose SARS-CoV-2 Antigen (Rapid) - Final Radiography Diagnostic Testing: Radiology Impression Abdomen/Pelvis CT 04/01/21 07:37 IMPRESSION: Findings suggestive of a mesenteric adenitis. Distended urinary bladder. Electronically Signed: Travis Ramon MD at 9:44 EDT , Service support , Gallbladder Ultrasound 04/01/21 08:40 IMPRESSION: Mild degree of right hydronephrosis. Electronically Signed: Travis Ramon MD at 10:46 EDT , Service support , MRCP 04/01/21 15:18 IMPRESSION: Normal MR Cholangiopancreatography (MRCP). Electronically Signed: Marques Cuevas MD at 18:48 EDT Tel , Service support , Physical Exam Const alert and oriented x3 HEENT Head and Scalp: normocephalic Resp normal respiratory effort and no use of accessory muscles Cardio regular rate, regular rhythm, S1 normal heart sound and S2 normal heart sound GI normal to inspection, nondistended, normoactive bowel sounds, soft to palpation, non-tender and non-distended Extremity normal to inspection Assessment & Plan Assessment/Plan (1) Pancreatitis: QUALIFIERS: Chronicity: acute Pancreatitis type: unspecified pancreatitis type Acute pancreatitis complication: no infection or necrosis Qualified Code(s): K85.90 - Acute pancreatitis without necrosis or infection, unspecified (2) Mesenteric adenitis: (3) Hypokalemia: (4) Hyponatremia: PLAN: 1. Acute pancreatitis Lipase slightly elevated at 1253 on admission but down to 688 today Unclear etiology but patient denies alcohol use and ultrasound was negative for any choledocholithiasis. Advance diet to regular MRCP was negative 2. Mesenteric adenitis Unclear etiology and significance We will check a lactic acid though doubt mesenteric ischemia would be an etiology Could be infectious which could also explain the pancreatitis Will likely require further follow-up as outpatient colonoscopy 3. Hyponatremia Chronic but improved today Consistent with SIADH TSH and random cortisol normal 4. Hypokalemia Chronic but improved Continue with replacement 5. Hypothyroidism On [place] Thyroid in which she has been on for years TSH normal 6. VTE prophylaxis: Low molecular rate heparin 7. History of COVID-19: Patient has COVID-19 earlier this year. Rapid antigen here was negative. No clinical suspicion for acute COVID-19 at this time. Charges/Coding Visit Charges Inpatient E&M: 86709 Subs Hosp L2
[2021-04-02] MEDS: Sodium Chloride 1 GM Tablet PO (10:17)
[2021-04-02] MEDS: Enoxaparin 40 MG/0.4 ML Syringe SC (10:17)
[2021-04-02] MEDS: Thyroid 60 MG Tablet 90 MG PO (10:17)
--- NOTE | 2021-04-02 11:10 | CASEMGMT ---
RN CM Face to Face with patient for initial transition planning/care coordination assessment. RN CM introduced self and role at [facility]. Patient sitting in chair, alert and oriented, at bedside. Patient willing to participate in assessment and is able to answer all questions appropriately. Care providers, pharmacy, and demographics verified. Patient wishes to discharge home, denies need for home health at this time. Patient states she has no further needs or concerns at this time. CM to follow for discharge planning needs that may arise. PCP: Shobha on 04/11 to get established Specialists: none Preferred Pharmacy: [facility] retail [place] [facility] [place]: none Living Will/HPOA: yes, Liam Rivas LNOK: Living Arrangements: Patient lives with in a 2 story home with bed and bath on first floor. Patient states she is independent at home. Transportation: [employer] DME/HHC: Patient has access with wheelchair but does not need. Denies further DME. Denies previous HHC or SNF. Disposition Plan: Patient to discharge home with family support and follow-up plans in place. Silvana MARTINEZ, RN, CM
--- NOTE | 2021-04-02 12:35 | PCM.DC ---
Discharge Instructions Diet Discharge Diet: No restrictions and - (1.5liters or quarts maximum of fluid per day) Activity Discharge Activity: Return to Normal Activity Follow Up Care Test Results: Test results from this visit will be discussed in further detail at your follow-up appointment, if applicable. Discharge Plan Admission Admit Date/Time: 04/01/21 15:15 Primary Reason for Your Visit: abdominal pain Attending Provider: Chris Smith Primary Care Provider: Care Physician,No Primary Discharge Orders/Prescriptions Prescriptions: New oxycodone 5 mg Tablet 5 mg PO Q6H PRN (Reason: pain) 3 Days Qty: 12 RF: 0 omeprazole 20 mg tablet,delayed release (DR/EC) 20 mg PO DAILY Qty: 30 RF: 0 Continued dicyclomine 10 MG capsule 20 mg PO Q6H PRN (Reason: abdominal pain) Qty: 16 RF: 0 sodium chloride 1 gram tablet 1 g PO BID RF: 0 potassium chloride 20 mEq tablet,ER particles/crystals 20 meq PO DAILY RF: 0 thyroid (pork) [[place] Thyroid] 90 mg tablet 90 mg PO DAILY RF: 0 Discontinued hydrocodone-acetaminophen 5-325 mg Tablet 1 tab PO Q4H PRN (Reason: pain) RF: 0 Referrals / Follow Up: Care Physician,No Primary [Primary Care Provider] - Disposition Disposition (needs filled in before D/C Order can be placed): Home, Self Care
--- NOTE | 2021-04-02 12:41 | PCM.DC.SUM ---
Providers Date of Admission: 04/01/21 Date of Discharge: 04/02/21 Primary Care Physician: No Primary Care Phys Reason For Visit: PANCREATITIS, HYPONATREMIA Diagnosis Discharge Diagnosis (1) Pancreatitis: Status: Acute Code(s): K85.90 - Acute pancreatitis without necrosis or infection, unspecified Qualifiers: Chronicity: acute Pancreatitis type: unspecified pancreatitis type Acute pancreatitis complication: no infection or necrosis Qualified Code(s): K85.90 - Acute pancreatitis without necrosis or infection, unspecified (2) Mesenteric adenitis: Status: Acute Code(s): I88.0 - Nonspecific mesenteric lymphadenitis (3) Hypokalemia: Status: Acute Code(s): E87.6 - Hypokalemia (4) Hyponatremia: Status: Acute Code(s): E87.1 - Hypo-osmolality and hyponatremia Medications at Discharge Home Medications dicyclomine 20 mg PO Q6H PRN #16 capsule 03/25/21 potassium chloride 20 meq PO DAILY 04/01/21 sodium chloride 1 g PO BID 04/01/21 thyroid (pork) [[place] Thyroid] 90 mg PO DAILY 04/01/21 omeprazole 20 mg PO DAILY #30 tab 04/02/21 oxycodone 5 mg PO Q6H PRN 3 Days #12 tab 04/02/21 Hospital Course Operations None Procedures None Summary of Care Provided Minutes Spent on Discharge: 32 Hospital Course: 51-year-old female presents with abdominal pain. Abdominal pain has been going on for months. Patient presented here had a lipase that was slightly elevated as well the CAT scan showed mesenteric adenitis. Patient was monitored and underwent MRCP. MRCP was negative. Today, the patient is feeling better and has tolerated p.o. Discussed with the patient and her that etiology of her abdominal pain is yet to be identified. Patient did have elevated lipase but her exam is inconsistent with pancreatitis as her abdominal pain is diffuse and not epigastric. Patient had normal lactate therefore not suggesting mesenteric ischemia. Concerns I have is this could be irritable bowel syndrome with as patient has had benefit from Bentyl in the past. Advised patient to follow-up with gastroenterology in the near future for routine colonoscopy. I explained to she and her that the mesentery adenitis is nonspecific but given her age she should have a routine screening colonoscopy. Patient will be given a short course of oxycodone as well as advised to take omeprazole [id number] daily. inquired about H. pylori testing but I told him that the yield would be low and she should try this current treatments before that is further looked into. Physical Exam Const alert Resp normal respiratory effort, no retractions, no use of accessory muscles and clear to auscultation bilaterally Cardio regular rate, regular rhythm, S1 normal heart sound and S2 normal heart sound GI normal to inspection, nondistended, normoactive bowel sounds, soft to palpation, non-tender and non-distended Medical Records Data Medical Nutrition Assessment Dietitian: Malnutrition Criteria Met Start: 04/01/21 15:47 Freq: Status: Active Protocol: Document 04/01/21 15:47 [facility] (Rec: 04/01/21 15:47 [facility] [id number]) Nutrition Malnutrition Evidence of Malnutrition Exists Yes Malnutrition (severe): Acute Illness/Injury Evidenced By Suboptimal Energy Intake ( Severe),Weight Loss (Severe) Clinical Problem Acute Disease or Injury Related Malnutrition Etiology related to altered GI function and inadequate nutrition to meet estimated nutritional needs Signs/Symptoms as evidenced by 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 Problem Recommendation Dietitian Recommendations/Changes When medically able, rec diet as tolerated to Transitional w / goal of Regular diet Will provide 8 oz ensure clear w/ meals for increased nutrition if consumed Weight / BMI Weight Weight: 56.1 kg Body Mass Index (BMI) 22.6 ABG / Lab / Microbiology Data Result Diagrams: 04/01/21 08:00 04/02/21 05:50 Laboratory: Laboratory Results - last 24 hr 04/01/21 15:55: Urine Osmolality 467, Ur Random Sodium 96 04/01/21 17:05: Serum Osmolality 279 04/01/21 17:05: Lactic Acid 0.8 04/02/21 05:50: Sodium 133 L, Potassium 3.3 L, Chloride 100, Carbon Dioxide 27.0, Anion Gap 6, BUN 7, Creatinine 0.52 L, Estim Creat Clear Calc 92.13, Est GFR (MDRD) Af Amer 157, Est GFR (MDRD) Non-Af 129, BUN/Creatinine Ratio 13.6, Glucose 102, Calcium 8.3 L, Magnesium 2.0, Lipase 688 H, TSH 2.43 04/02/21 05:50: Cortisol 13.70 Microbiology: Microbiology 04/01/21 10:48 Mucosa - Nose SARS-CoV-2 Antigen (Rapid) - Final Radiography Diagnostic Testing: Radiology Impression MRCP 04/01/21 15:18 IMPRESSION: Normal MR Cholangiopancreatography (MRCP). Electronically Signed: Marques Cuevas MD at 18:48 EDT Tel , Service support , D/C Instructions Discharge Diet: No restrictions and - (1.5liters or quarts maximum of fluid per day) Meaningful Use Info Meaningful Use Diagnoses (Choose all that apply): None applicable Discharge Plan Admission Admit Date/Time: 04/01/21 15:15 Primary Reason for Your Visit: abdominal pain Attending Provider: Chris Smith Primary Care Provider: Care Physician,No Primary Discharge Orders/Prescriptions Prescriptions: New oxycodone 5 mg Tablet 5 mg PO Q6H PRN (Reason: pain) 3 Days Qty: 12 RF: 0 omeprazole 20 mg tablet,delayed release (DR/EC) 20 mg PO DAILY Qty: 30 RF: 0 Continued dicyclomine 10 MG capsule 20 mg PO Q6H PRN (Reason: abdominal pain) Qty: 16 RF: 0 sodium chloride 1 gram tablet 1 g PO BID RF: 0 potassium chloride 20 mEq tablet,ER particles/crystals 20 meq PO DAILY RF: 0 thyroid (pork) [[place] Thyroid] 90 mg tablet 90 mg PO DAILY RF: 0 Discontinued hydrocodone-acetaminophen 5-325 mg Tablet 1 tab PO Q4H PRN (Reason: pain) RF: 0 Referrals / Follow Up: Bell Bull MD [STAFF PHYSICIAN] - Within 2 Weeks (follow up already arranged) Jamar Burgess DO [STAFF PHYSICIAN] - Within 1 Month (gastroenterology for pancreatitis, mesenteric adenitis and colonoscopy) Care Physician,No Primary [Primary Care Provider] - Disposition Disposition (needs filled in before D/C Order can be placed): Home, Self Care Charges/Coding Visit Charges Inpatient E&M: 89356 Disch Hosp
[2021-04-02 15:06] VITALS: BP 126/79; PULSE 98; RESP 16; TEMP 37; O2SAT 98
== END 2021-04-02 15:45 | disposition home or self-care (01) | DRG 438 ==
LOC: ED 11:58 → MS3 04-02 06:53
PROVIDERS: Emergency Provider Emergency Medicine
DX: K85.90 Acute pancreatitis without necrosis or infection, unspecified (principal); E43 Unspecified severe protein-calorie malnutrition; E87.1 Hypo-osmolality and hyponatremia; I88.0 Nonspecific mesenteric lymphadenitis; E87.6 Hypokalemia; Z79.899 Other long term (current) drug therapy; E03.9 Hypothyroidism, unspecified; Z86.16 Personal history of COVID-19; Z68.22 Body mass index [BMI] 22.0-22.9, adult
CPT/HCPCS: 36415; 74177; 74181; 76705; 80048; 80053; 81001; 82533; 83605; 83690; 83735; 83930; 83935; 84300; 84443; 85025; 87426; 93005; 97802; 99284; J7030; Q9967; A4216; J2405